=== PATIENT | female | born 1980 | race American Indian/Alaskan Native ===

== ENCOUNTER 2017-07-07 04:40 | Emergency (ER) | payer MEDICAID ==
--- NOTE | 2017-07-07 09:22 | Emergency Department Report ---
Minor Respiratory - HPI Chief Complaint: Sore Throat Stated Complaint: SORE THROAT Time Seen by Provider: 07/07/17 08:58 Duration: 4 Days Pain Location: Throat, Ear (left ear) Severity: severe Minor Respiratory: Yes Sore Throat, Yes Able to Tolerate Fluids (painful to drink and swallow. No drooling), Yes Ear Pain (left ear), Yes Sick Contacts ( child with strep), Yes Fever (chills), No Rhinorrhea, No Cough, No Hemoptysis, No Chest Pain, No Shortness of Breath Other History: Mom here report that the child's has sore throat and she has sore throats and she thinks she gave child whenever she has. She reports chills but did not take her temperature. Sore throat is 10 out of 10 and worse with swallowing feels sore. She says she is not able to eat anything solid because her throat hurts. Denies any drooling. Also complaining of left ear pain and pain to her neck. Pain is 10 out of 10. Worse with swallowing. Denies any coughing, abdominal pain. Denies any nausea or vomiting. Denies any chest pain or shortness of breath. Denies any swollen tongue.. Mom his heart hearing mostly to her right here and she has a hearing aid. Child is positive for strep ED Review of Systems ROS: Stated complaint: SORE THROAT Other details as noted in HPI Comment: All other systems reviewed and negative Constitutional: chills Eyes: denies: eye pain, eye discharge ENT: ear pain, throat pain. denies: dental pain, congestion Respiratory: no symptoms reported Cardiovascular: denies: chest pain, palpitations, edema, syncope, paroxysmal nocturnal dyspnea Gastrointestinal: denies: abdominal pain, nausea, vomiting, diarrhea, constipation, hematemesis, melena, hematochezia Genitourinary: denies: dysuria, hematuria Musculoskeletal: denies: back pain, joint swelling, arthralgia, myalgia Skin: denies: rash Neurological: denies: headache, abnormal gait, vertigo ED Past Medical Hx - Past Medical History Previous Medical History?: Yes Additional medical history: UTI/pyelonephritis. Hearing deficit - Surgical History Past Surgical History?: No - Family History Family history: no significant - Social History Smoking Status: Current Every Day Smoker Substance Use Type: None - Medications Home Medications: Home Medications Medication Instructions Recorded Confirmed Last Taken Type Septra 04/20/16 Unknown History Toradol 04/20/16 Unknown History Zofran Odt 04/20/16 Unknown History Acetaminophen with Codeine 10 ml PO Q12H PRN #100 ml 07/07/17 Unknown Rx [Acetaminophen-Codeine ORAL LIQ] Ibuprofen [Motrin] 600 mg PO Q8H PRN #15 tablet 07/07/17 Unknown Rx Penicillin V Potassium 500 mg PO Q8H 10 Days #30 tablet 07/07/17 Unknown Rx Minor Respiratory Exam - Exam General: Vital signs noted. No distress. Alert and acting appropriately. This is a 36-year-old female well-nourished well-developed, nontoxic in appearance. HEENT: Yes Pharyngeal Erythema (swelling), Yes Pharyngeal Exudates (minimal, malodorous breath), Yes Moist Mucous Membranes (no drooling and oral airways patent. Uvula midline), No Rhinorrhea, No Conjuctival Injection, No Frontal Tenderness, No Maxillary Tenderness Ear: Neither TM Bulge, Neither TM Erythema, Neither EAC Pain, Neither EAC Discharge Neck: Yes Adenopathy (anterior Lily called), Yes Supple (full range of motion) Lungs: Yes Good Air Exchange, No Wheezes, No Ronchi, No Stridor, No Cough, No Labored Respirations, No Retractions, No Use of Accessory Muscles, No Other Abnormal Lung Sounds Heart: Yes Regular (tachycardic at 110), No Murmur Abdomen: Yes Normal Bowel Sounds, No Tenderness, No Peritoneal Signs Skin: No Rash, No Edema Neurologic: Neurological: Alert and oriented 3. GCS is 15, speech is clear and fluid. Gait is normal. No facial droop Musculoskeletal: Unremarkable. Extremity:No Clubbing, cyanosis or edema. +2 pulses to all extremities and no neurovascular compromise ED Course Vital Signs 07/07/17 05:51 Temperature 98.8 F Pulse Rate 110 H Respiratory 17 Rate Blood Pressure 189/165 O2 Sat by Pulse 99 Oximetry Vital Signs 07/07/17 07/07/17 05:51 09:36 Temperature 98.8 F Pulse Rate 110 H 90 Respiratory 17 18 Rate Blood Pressure 189/165 114/71 O2 Sat by Pulse 99 100 Oximetry - Reevaluation(s) Reevaluation #1: 07/07/17 09:48 Patient given [place] 7.5 mg elixir and lidocaine by mouth applied to throat. She is able to tolerate oral liquids and emergency room ED Medical Decision Making - Lab Data Strep test negative and culture pendiing. Mom exposed to strep from child - Medical Decision Making ED course: Him here complaining of ear pain and sore throats with neck pain. Her child is positive for strep. Mom with erythema, exudative throat, enlarged cervical lymph nodes and reports of chills. Based on Centor criteria with absence of respiratory symptoms and also exposure to strep ,she'll be treated for strep throat. Patient given [place] 7.5 mg. Emergency room and topical lidocaine to throat. She is able to tolerate oral liquids. Her heart rate is stabilized. I discussed with her that although her strep test is negative, cultures are still pending and her child is positive for strep therefore I will treat her for strep throat. She was given prescription for Motrin, Tylenol 3 elixir and penicillin V and discharged from emergency room with her family member in stable condition. Critical care attestation.: If time is entered above; I have spent that time in minutes in the direct care of this critically ill patient, excluding procedure time. ED Disposition Clinical Impression: Exudative pharyngitis, Streptococcus exposure, Chills, Anterior cervical lymphadenopathy, Otalgia of left ear Disposition: DC-01 TO HOME OR SELFCARE Is pt being admited?: No Does the pt Need Aspirin: No Condition: Stable Instructions: Strep Throat (ED) Additional Instructions: Please increase her fluid intake and gargle warm salt water 3-4 times a day Take Tylenol 3 for moderate to severe pain but please do not drive or operate heavy machinery while taking this medication as it causes drowsiness ,take Motrin for pain that is not severe Take penicillin V for strep throat. Prescriptions: Acetaminophen with Codeine [Acetaminophen-Codeine ORAL LIQ] 10 ml PO Q12H PRN # 100 ml PRN Reason: sore throat Ibuprofen [Motrin] 600 mg PO Q8H PRN #15 tablet PRN Reason: Pain Penicillin V Potassium 500 mg PO Q8H 10 Days #30 tablet Referrals: PRIMARY CARE, [Primary Care Provider] - 2-3 Days [facility] [Outside] - 2-3 Days Forms: Work/School Release Form(ED), Accompanied Note
[2017-07-07] MEDS ORDERED: NORCO PO ONE (09:23)
[2017-07-07] MEDS ORDERED: LIDOCAINE VISCOUS 2% PO ONE (09:25)
[2017-07-07 09:44] VITALS: BP 114/71
== END 2017-07-07 10:25 | disposition home or self-care (01) ==
LOC: ED 04:40
DX: J02.9 Acute pharyngitis, unspecified (principal); R59.1 Generalized enlarged lymph nodes; H92.02 Otalgia, left ear; F17.200 Nicotine dependence, unspecified, uncomplicated
CPT/HCPCS: 87116; 87430

== ENCOUNTER 2017-07-09 16:16 | Emergency (ER) | payer MEDICAID ==
[2017-07-09 17:14] LABS: Hematocrit 38.6 % (30.3-42.9); Hemoglobin 13.3 gm/dl (10.1-14.3); Mean Corpuscular HGB Conc 35 % (30-34); Mean Corpuscular Hemoglobin 32 pg (28-32); Mean Corpuscular Volume 92 fl (79-97); Platelet Count 304 K/mm3 (140-440); Red Blood Count 4.19 M/mm3 (3.65-5.03)
[2017-07-09 17:35] LABS: BUN/Creatinine Ratio 8; Blood Urea Nitrogen 8 mg/dL (7-17); Calcium 9.5 mg/dL (8.4-10.2); Hemolysis Index 0
[2017-07-09 19:38] VITALS: BP 129/87
== END 2017-07-09 20:54 | disposition left against medical advice (07) ==
LOC: ED 16:16
DX: J02.9 Acute pharyngitis, unspecified (principal); Z53.21 Procedure and treatment not carried out due to patient leaving prior to being seen by health care provider
CPT/HCPCS: 36415; 80048; 85027; 86140

== ENCOUNTER 2018-06-29 08:13 | Emergency (ER) | payer MEDICAID ==
--- NOTE | 2018-06-29 09:12 | Emergency Department Report ---
ED GI Bleed HPI - General Chief complaint: GI Bleed Stated complaint: BLOOD IN STOOL Source: patient Mode of arrival: Ambulatory Limitations: No Limitations - History of Present Illness Initial comments: This is a 37-year-old -[place] female is here and is here reports blood in stool this morning. Patient reports during bowel movement she felt a large gush from rectum and when she looked until it was a large amount of bright red blood. She reports a history of hernia. Patient states she is also having pain to the umbilical region where her hernia is. She denies chest pain, shortness of breath, urinary frequency, urgency, dysuria, nausea or vomiting, or diarrhea. MD complaint: gross hematochezia -: This morning Location: periumbilical Radiation: none Severity scale (0 -10): 8 Quality: cramping Consistency: intermittent Improves with: none Worsens with: bowel movement Associated Symptoms: abdominal pain. denies: nausea, vomiting, epistaxis, fever/chills, headaches, loss of appetite, malaise, easy bruising, rash, other bleeding, shortness of breath, syncope, weakness - Related Data Home Medications Medication Instructions Recorded Confirmed Last Taken Septra 04/20/16 Unknown Toradol 04/20/16 Unknown Zofran Odt 04/20/16 Unknown Previous Rx's Medication Instructions Recorded Last Taken Type Acetaminophen with Codeine 10 ml PO Q12H PRN #100 ml 07/07/17 Unknown Rx [Acetaminophen-Codeine ORAL LIQ] Ibuprofen [Motrin] 600 mg PO Q8H PRN #15 tablet 07/07/17 Unknown Rx Penicillin V Potassium 500 mg PO Q8H 10 Days #30 tablet 07/07/17 Unknown Rx Allergies Allergy/AdvReac Type Severity Reaction Status Date / Time No Known Allergies Allergy Unverified 04/20/16 15:31 ED Review of Systems ROS: Stated complaint: BLOOD IN STOOL Other details as noted in HPI Constitutional: denies: chills, fever Respiratory: denies: cough, shortness of breath, wheezing Cardiovascular: denies: chest pain, palpitations Gastrointestinal: abdominal pain, hematochezia. denies: nausea, vomiting, diarrhea, constipation, hematemesis, melena Genitourinary: denies: urgency, dysuria, discharge Neurological: denies: headache, weakness, paresthesias Psychiatric: denies: anxiety, depression ED Past Medical Hx - Past Medical History Previous Medical History?: Yes Additional medical history: UTI/pyelonephritis. Hearing deficit - Surgical History Past Surgical History?: Yes Additional Surgical History: right nephrectomy - Social History Smoking Status: Current Every Day Smoker Substance Use Type: Alcohol - Medications Home Medications: Home Medications Medication Instructions Recorded Confirmed Last Taken Type Septra 04/20/16 Unknown History Toradol 04/20/16 Unknown History Zofran Odt 04/20/16 Unknown History Acetaminophen with Codeine 10 ml PO Q12H PRN #100 ml 07/07/17 Unknown Rx [Acetaminophen-Codeine ORAL LIQ] Ibuprofen [Motrin] 600 mg PO Q8H PRN #15 tablet 07/07/17 Unknown Rx Penicillin V Potassium 500 mg PO Q8H 10 Days #30 tablet 07/07/17 Unknown Rx ED Physical Exam - General Limitations: No Limitations General appearance: alert, in no apparent distress - Respiratory Respiratory exam: Present: normal lung sounds bilaterally. Absent: respiratory distress - Cardiovascular Cardiovascular Exam: Present: regular rate, normal rhythm. Absent: systolic murmur, diastolic murmur, rubs, gallop - GI/Abdominal GI/Abdominal exam: Present: soft, tenderness (left upper quadrant and right upper quadrant tenderness), guarding, normal bowel sounds, hernia (periumb ilical). Absent: distended, rebound, rigid, organomegaly, mass, bruit, pulsatile mass - Rectal Rectal exam: Present: normal rectal tone, heme (+) stool, bloody stool. Absent: decreased rectal tone, heme (-) stool, black stool, fecal impaction, hemorrhoids, mass, tenderness - Neurological Exam Neurological exam: Present: alert, oriented X3 - Psychiatric Psychiatric exam: Present: normal affect, normal mood - Skin Skin exam: Present: warm, dry, intact, normal color. Absent: rash ED Course Vital Signs 06/29/18 08:41 Temperature 98.2 F Pulse Rate 61 Respiratory 18 Rate Blood Pressure 132/87 O2 Sat by Pulse 100 Oximetry ED Medical Decision Making - Lab Data Result diagrams: 06/29/18 09:31 06/29/18 09:35 Lab Results 06/29/18 06/29/18 06/29/18 Range/Units 09:31 09:31 09:35 WBC 6.0 (4.5-11.0) K/mm3 RBC 3.65 (3.65-5.03) M/mm3 Hgb 12.0 (10.1-14.3) gm/dl Hct 35.1 (30.3-42.9) % MCV 96 (79-97) fl MCH 33 H (28-32) pg MCHC 34 (30-34) % RDW 15.4 H (13.2-15.2) % Plt Count 258 (140-440) K/mm3 Lymph % (Auto) 38.4 H (13.4-35.0) % Mckinley % (Auto) 5.5 (0.0-7.3) % Eos % (Auto) 0.6 (0.0-4.3) % Baso % (Auto) 0.5 (0.0-1.8) % Lymph # 2.3 (1.2-5.4) K/mm3 Mckinley # 0.3 (0.0-0.8) K/mm3 Eos # 0.0 (0.0-0.4) K/mm3 Baso # 0.0 (0.0-0.1) K/mm3 Seg Neutrophils % 55.0 (40.0-70.0) % Seg Neutrophils # 3.3 (1.8-7.7) K/mm3 PT 13.8 (12.2-14.9) Sec. INR 1.00 (0.87-1.13) APTT 24.2 (24.2-36.6) Sec. Sodium (137-145) mmol/L Potassium (3.6-5.0) mmol/L Chloride (98-107) mmol/L Carbon Dioxide (22-30) mmol/L Anion Gap mmol/L BUN (7-17) mg/dL Creatinine (0.7-1.2) mg/dL Estimated GFR ml/min BUN/Creatinine Ratio % Glucose (65-100) mg/dL Calcium (8.4-10.2) mg/dL Total Bilirubin (0.1-1.2) mg/dL AST (5-40) units/L ALT (7-56) units/L Alkaline Phosphatase (35-129) units/L Total Protein (6.3-8.2) g/dL Albumin (3.9-5) g/dL Albumin/Globulin Ratio % Urine Color (Yellow) Urine Turbidity (Clear) Urine pH (5.0-7.0) Ur Specific [place] (1.003-1.030) Urine Protein (Negative) mg/dL Urine Glucose (UA) (Negative) mg/dL Urine Ketones (Negative) mg/dL Urine Blood (Negative) Urine Nitrite (Negative) Urine Bilirubin (Negative) Urine Urobilinogen (<2.0) mg/dL Ur Leukocyte Esterase (Negative) Urine WBC (Auto) (0.0-6.0) /HPF Urine RBC (Auto) (0.0-6.0) /HPF U Epithel Cells (Auto) (0-13.0) /HPF Urine Bacteria (Auto) (Negative) /HPF Urine Yeast (Budding) /HPF Urine HCG, Qual (Negative) Blood Type A POSITIVE Antibody Screen Negative 06/29/18 06/29/18 Range/Units 09:35 Unknown WBC (4.5-11.0) K/mm3 RBC (3.65-5.03) M/mm3 Hgb (10.1-14.3) gm/dl Hct (30.3-42.9) % MCV (79-97) fl MCH (28-32) pg MCHC (30-34) % RDW (13.2-15.2) % Plt Count (140-440) K/mm3 Lymph % (Auto) (13.4-35.0) % Mckinley % (Auto) (0.0-7.3) % Eos % (Auto) (0.0-4.3) % Baso % (Auto) (0.0-1.8) % Lymph # (1.2-5.4) K/mm3 Mckinley # (0.0-0.8) K/mm3 Eos # (0.0-0.4) K/mm3 Baso # (0.0-0.1) K/mm3 Seg Neutrophils % (40.0-70.0) % Seg Neutrophils # (1.8-7.7) K/mm3 PT (12.2-14.9) Sec. INR (0.87-1.13) APTT (24.2-36.6) Sec. Sodium 137 (137-145) mmol/L Potassium 4.9 (3.6-5.0) mmol/L Chloride 101.7 (98-107) mmol/L Carbon Dioxide 25 (22-30) mmol/L Anion Gap 15 mmol/L BUN 7 (7-17) mg/dL Creatinine 0.9 (0.7-1.2) mg/dL Estimated GFR > 60 ml/min BUN/Creatinine Ratio 8 % Glucose 90 (65-100) mg/dL Calcium 8.8 (8.4-10.2) mg/dL Total Bilirubin 0.30 (0.1-1.2) mg/dL AST 19 (5-40) units/L ALT 7 (7-56) units/L Alkaline Phosphatase 84 (35-129) units/L Total Protein 6.9 (6.3-8.2) g/dL Albumin 3.6 L (3.9-5) g/dL Albumin/Globulin Ratio 1.1 % Urine Color Yellow (Yellow) Urine Turbidity Clear (Clear) Urine pH 6.0 (5.0-7.0) Ur Specific [place] 1.004 (1.003-1.030) Urine Protein <15 mg/dl (Negative) mg/dL Urine Glucose (UA) Neg (Negative) mg/dL Urine Ketones Neg (Negative) mg/dL Urine Blood Mod (Negative) Urine Nitrite Neg (Negative) Urine Bilirubin Neg (Negative) Urine Urobilinogen < 2.0 (<2.0) mg/dL Ur Leukocyte Esterase Lg (Negative) Urine WBC (Auto) 12.0 H (0.0-6.0) /HPF Urine RBC (Auto) 8.0 (0.0-6.0) /HPF U Epithel Cells (Auto) 1.0 (0-13.0) /HPF Urine Bacteria (Auto) 1+ (Negative) /HPF Urine Yeast (Budding) 1+ /HPF Urine HCG, Qual Negative (Negative) Blood Type Antibody Screen - Radiology Data Radiology results: report reviewed CT ABDOMEN PELVIS WITH CONTRAST: HISTORY: Left upper quadrant and right upper quadrant tenderness. COMPARISON: none. TECHNIQUE: Helical CT in 1.25mm intervals following IV contrast. Sagittal and coronal reconstructions. FINDINGS: Lung bases: Minor atelectatic changes are noted in the lower lobes. Liver: Normal. Biliary system: Normal. Pancreas: Normal. Spleen: Normal. Kidneys/ureters/bladder: The left kidney is severely atrophic, absent or has been surgically removed. The right kidney and collecting system and bladder are unremarkable. Small cysts at the superior pole of the right kidney are noted. Adrenal glands: Normal. Aorta: Normal. Intestines: Unremarkable given no oral contrast was administered. Appendix: Normal. Pelvic viscera: Normal. Ascites: Small pelvic ascites. Adenopathy: None. Musculoskeletal: The bony structures are intact. Small umbilical hernia containing fat is identified. There is a small ventral wall defect just superior to the umbilicus containing fat. IMPRESSION: No acute inflammatory process is identified The left kidney is not confidently identified. Severe atrophy versus agenesis versus surgical removal. Small pelvic ascites. Umbilical hernias as described. - Medical Decision Making This is a 37 y.o. female that presents with hematochezia since this morning. Patient is stable and was examined by me. Vitals stable. Obtained guaiac stool, CMP, CBC, UA, CT of abdomen and pelvis. Guaiac positive. All other labs unremarkable. IV site obtained and given normal saline [address] dictated radiologist report reviewed by myself. No acute inflammatory process is id entified The left kidney is not confidently identified. Severe atrophy versus agenesis versus surgical removal. Small pelvic ascites. Umbilical hernias as described. Consulted with the attending Dr. Win and [facility] Dr. Diaz. He states patient can follow-up outpatient in their office. Patient has scheduled EGD for July 10, 2018. She will need to consult them to add a colonoscopy. Discussed plan with patient and agreed to plan. No further questions noted by the patient. Discharged home in stable condition. Follow up with PCP in 2-3 days. Critical care attestation.: If time is entered above; I have spent that time in minutes in the direct care o f this critically ill patient, excluding procedure time. ED Disposition Clinical Impression: Stool guaiac positive Abdominal pain Qualifiers: Abdominal location: right upper quadrant Qualified Code(s): R10.11 - Right upper quadrant pain Disposition: DC-01 TO HOME OR SELFCARE Is pt being admited?: No Does the pt Need Aspirin: No Condition: Stable Instructions: Abdominal Pain (ED) Additional Instructions: Call [facility] to schedule a colonoscopy. Keep scheduled EGD appointment on 07/10/2018 with the [facility]. Tongue to the emergency room if increased bleeding, increased abdominal pain, chest pain, shortness of breath, or dizziness. Referrals: KEYA CARDOSO MD [Primary Care Provider] - 3-5 Days [facility] [Provider Group] - 3-5 Days [facility] [Provider Group] - 3-5 Days Forms: Accompanied Note Time of Disposition: 14:17
[2018-06-29] MEDS ORDERED: NACL 0.9% 1000 ML 1,000 ML IV ONE (09:33)
[2018-06-29 09:47] LABS: Basophils % (Auto) 0.5 % (0.0-1.8); Eosinophils % (Auto) 0.6 % (0.0-4.3); Hematocrit 35.1 % (30.3-42.9); Lymphocytes # (Auto) 2.3 K/mm3 (1.2-5.4); Lymphocytes % (Auto) 38.4 % (13.4-35.0); Mean Corpuscular HGB Conc 34 % (30-34); Mean Corpuscular Volume 96 fl (79-97); Monocytes # (Auto) 0.3 K/mm3 (0.0-0.8); Monocytes % (Auto) 5.5 % (0.0-7.3); Platelet Count 258 K/mm3 (140-440); Red Blood Count 3.65 M/mm3 (3.65-5.03); Red Cell Distribution Width 15.4 % (13.2-15.2)
[2018-06-29 10:05] LABS: Partial Thromboplastin Time 24.2 Sec. (24.2-36.6)
[2018-06-29 10:10] LABS: Albumin 3.6 g/dL (3.9-5); BUN/Creatinine Ratio 8; Blood Urea Nitrogen 7 mg/dL (7-17); Calcium 8.8 mg/dL (8.4-10.2); Hemolysis Index 115
[2018-06-29 10:17] LABS: Alanine Aminotransferase 7 units/L (7-56)
[2018-06-29 10:59] LABS: Bacteria,Urine 1+ /HPF (Negative); Bilirubin,Urine NEG (Negative); Blood,Urine MOD (Negative); Color,Urine Yellow (Yellow); Protein,Urine <15 mg/dL mg/dL (Negative); Urobilinogen,Urine < 2.0 mg/dL (<2.0)
[2018-06-29 11:04] LABS: HCG Qualitative,Urine Negative (Negative)
--- NOTE | 2018-06-29 12:34 | Cat Scan Report ---
CT ABDOMEN PELVIS WITH CONTRAST: HISTORY: Left upper quadrant and right upper quadrant tenderness. COMPARISON: none. TECHNIQUE: Helical CT in 1.25mm intervals following IV contrast. Sagittal and coronal reconstructions. FINDINGS: Lung bases: Minor atelectatic changes are noted in the lower lobes. Liver: Normal. Biliary system: Normal. Pancreas: Normal. Spleen: Normal. Kidneys/ureters/bladder: The left kidney is severely atrophic, absent or has been surgically removed. The right kidney and collecting system and bladder are unremarkable. Small cysts at the superior pole of the right kidney are noted. Adrenal glands: Normal. Aorta: Normal. Intestines: Unremarkable given no oral contrast was administered. Appendix: Normal. Pelvic viscera: Normal. Ascites: Small pelvic ascites. Adenopathy: None. Musculoskeletal: The bony structures are intact. Small umbilical hernia containing fat is identified. There is a small ventral wall defect just superior to the umbilicus containing fat. IMPRESSION: No acute inflammatory process is identified The left kidney is not confidently identified. Severe atrophy versus agenesis versus surgical removal. Small pelvic ascites. Umbilical hernias as described.
[2018-06-29 14:37] VITALS: BP 128/83
== END 2018-06-29 14:37 | disposition home or self-care (01) ==
LOC: ED 08:13
DX: R19.5 Other fecal abnormalities (principal); R10.11 Right upper quadrant pain; R10.12 Left upper quadrant pain; F17.200 Nicotine dependence, unspecified, uncomplicated
CPT/HCPCS: 36415; 74177; 80053; 81001; 81025; 82271; 85025; 85610; 85730; 86850; 86900; 86901; 99284; J7030; Q9967

== ENCOUNTER 2018-08-02 09:25 | Outpatient (CLI) | payer MEDICAID ==
--- NOTE | 2018-08-02 13:53 | Nuclear Medicine Report ---
NUCLEAR MEDICINE GASTRIC EMPTYING SCAN HISTORY: Nausea and vomiting. FINDINGS: Anterior abdominal images were obtained for 90 minutes after ingestion of 1 mCi of technetium 99m sulfur colloid in oatmeal. Half life for gastric emptying measures 46 minutes. No scintigraphic evidence for reflux disease. IMPRESSION: Normal gastric emptying.
== END 2018-08-02 09:50 | disposition home or self-care (01) ==
LOC: NM 09:25
PROVIDERS: ATTEND Student in an Organized Health Care Education/Training Program
DX: R10.13 Epigastric pain (principal); R63.4 Abnormal weight loss; R11.2 Nausea with vomiting, unspecified; R68.81 Early satiety; F17.200 Nicotine dependence, unspecified, uncomplicated
CPT/HCPCS: 78264; A9541

== ENCOUNTER 2018-10-13 17:48 | Emergency (ER) | payer MEDICAID ==
--- NOTE | 2018-10-13 18:00 | Emergency Department Report ---
Blank Doc - Documentation Documentation: 38 Y/O C/O OF NAUSEA, DIZZINESS, SEVERE NECK PAIN AND SORE THROAT. HAD TONSILS REMOVED EARLIER THIS YEAR FOR SIMILAR. NO VOMITING OR BLEEDING. PLAN CBC, BMP, STREP, PAIN CONTROL
[2018-10-13] MEDS ORDERED: NORCO 5/325 PO STA (18:01)
[2018-10-13 18:06] VITALS: BP 141/88
[2018-10-13 18:52] LABS: Basophils % (Auto) 0.4 % (0.0-1.8); Eosinophils % (Auto) 0.6 % (0.0-4.3); Hematocrit 36.2 % (30.3-42.9); Hemoglobin 12.6 gm/dl (10.1-14.3); Lymphocytes # (Auto) 2.5 K/mm3 (1.2-5.4); Mean Corpuscular HGB Conc 35 % (30-34); Mean Corpuscular Volume 96 fl (79-97); Monocytes # (Auto) 0.3 K/mm3 (0.0-0.8); Monocytes % (Auto) 4.3 % (0.0-7.3); Platelet Count 262 K/mm3 (140-440); Red Blood Count 3.77 M/mm3 (3.65-5.03)
[2018-10-13 19:09] LABS: BUN/Creatinine Ratio 9; Blood Urea Nitrogen 9 mg/dL (7-17); Calcium 9.3 mg/dL (8.4-10.2); Hemolysis Index 16
== END 2018-10-13 20:29 | disposition left against medical advice (07) ==
LOC: ED 17:48
DX: R11.0 Nausea (principal); R42 Dizziness and giddiness; M54.2 Cervicalgia; J02.9 Acute pharyngitis, unspecified
CPT/HCPCS: 80048; 85025; 99283

== ENCOUNTER 2020-06-14 11:14 | Emergency (ER) | payer MEDICAID ==
[2020-06-14] MEDS ORDERED: SODIUM CHLORIDE 0.9% 1000 ML 1,000 ML IV ONE ×3 (12:06→19:14)
[2020-06-14] MEDS ORDERED: ONDANSETRON 4 MG/2 ML INJ IV ONE (12:06)
[2020-06-14] MEDS ORDERED: fentaNYL 100 MCG/2 ML INJ IV ONE ×2 (12:06→15:22)
[2020-06-14] MEDS ORDERED: ACETAMINOPHEN 500 MG TAB PO ONE ×2 (12:09→19:14)
--- NOTE | 2020-06-14 12:13 | Emergency Department Report ---
HPI - HPI HPI: Room 44 The patient is a 39-year-old female present with a chief complaint of abdominal pain. Patient states for the past 3 days she has had constant pain in her epigastric region as well as right flank and low back. Patient describes the pain as a constant sharp stabbing pain. Patient missed occasional nausea but denies vomiting. The patient states she has not eaten in the past 2 days because food increases the pain. Patient states she developed a fever 101.9 F this morning. The patient states she noticed some blood in her stool on Monday but denies dysuria or hematuria. Patient currently gives her abdominal pain a score of 10/10 <GAIL BATISTA - Last Filed: 06/14/20 19:34> <PAULIE KAPADIA - Last Filed: 06/14/20 22:15> - General Chief Complaint: Abdominal Pain Time Seen by Provider: 06/14/20 11:54 ED Past Medical Hx - Past Medical History Additional medical history: UTI/pyelonephritis/ HERNIA. Hearing deficit. Born with 1 kidney - Surgical History Additional Surgical History: Breast reduction, , oral surgery - Family History Family history: no significant - Social History Smoking Status: Current Every Day Smoker (1/3 pack/day) Substance Use Type: None (Denies illicit drug use), Alcohol (Occasional) <GAIL BATISTA - Last Filed: 06/14/20 19:34> <PAULIE KAPADIA - Last Filed: 06/14/20 22:15> - Medications Home Medications: Home Medications Medication Instructions Recorded Confirmed Last Taken Type Septra 04/20/16 Unknown History Toradol 04/20/16 Unknown History Zofran Odt 04/20/16 Unknown History Acetaminophen with Codeine 10 ml PO Q12H PRN #100 ml 07/07/17 Unknown Rx [Acetaminophen-Codeine ORAL LIQ] Ibuprofen [Motrin] 600 mg PO Q8H PRN #15 tablet 07/07/17 Unknown Rx Penicillin V Potassium 500 mg PO Q8H 10 Days #30 tablet 07/07/17 Unknown Rx HYDROcodone/APAP 5-325 [[place] 1 - 2 each PO Q6HR PRN #14 tablet 06/14/20 Unknown Rx 5/325] Ibuprofen [Motrin 800 MG tab] 800 mg PO Q8HR PRN #20 tablet 06/14/20 Unknown Rx Promethazine [Phenergan] 25 mg PO Q6HR PRN #20 tab 06/14/20 Unknown Rx levoFLOXacin [Levaquin] 750 mg PO QDAY #10 tablet 06/14/20 Unknown Rx ED Review of Systems ROS: Stated complaint: FEVER/ABD PAIN/BACK PAIN Other details as noted in HPI Constitutional: fever Eyes: denies: eye pain ENT: denies: throat pain Respiratory: no symptoms reported Cardiovascular: denies: chest pain Endocrine: no symptoms reported Gastrointestinal: abdominal pain, nausea. denies: vomiting Genitourinary: denies: dysuria, hematuria Musculoskeletal: back pain Neurological: denies: headache <GAIL BATISTA - Last Filed: 06/14/20 19:34> ROS: Stated complaint: FEVER/ABD PAIN/BACK PAIN Other details as noted in HPI <PAULIE KAPADIA - Last Filed: 06/14/20 22:15> Physical Exam - Physical Exam Vital Signs: Vital Signs 06/14/20 11:32 Temperature 100.6 F H Pulse Rate 125 H Respiratory 20 Rate Blood Pressure 110/77 O2 Sat by Pulse 96 Oximetry Physical Exam: GENERAL: The patient is well-developed well-nourished female lying on stretcher not appearing to be in acute distress. [] HEENT: Normocephalic. Atraumatic. Extraocular motions are intact. Patient has moist mucous membranes. NECK: Supple. Trachea midline CHEST/LUNGS: Clear to auscultation. There is no respiratory distress noted. HEART/CARDIOVASCULAR: Regular. There is no tachycardia. There is no gallop rub or murmur. ABDOMEN: Abdomen is soft, with greatest tenderness to palpation in the midepiga stric and right upper quadrant. There is mild left upper quadrant tenderness. The remainder of the abdomen is soft and nontender. There is no rebound or guarding. Patient has normal bowel sounds. There is no abdominal distention. SKIN: There is no rash. There is no edema. There is no diaphoresis. NEURO: The patient is awake, alert, and oriented. The patient is cooperative. The patient has normal speech MUSCULOSKELETAL: There is no evidence of acute injury. <GAIL BATISTA - Last Filed: 06/14/20 19:34> - Physical Exam Vital Signs: Vital Signs 06/14/20 06/14/20 06/14/20 11:32 13:37 15:36 Temperature 100.6 F H Pulse Rate 125 H 110 H 110 H Respiratory 20 20 20 Rate Blood Pressure 110/77 Blood Pressure 123/80 130/79 [Right] O2 Sat by Pulse 96 98 97 Oximetry 06/14/20 06/14/20 06/14/20 17:17 18:16 19:07 Temperature Pulse Rate 102 H 109 H 115 H Respiratory 18 17 17 Rate Blood Pressure Blood Pressure 116/76 122/82 128/82 [Right] O2 Sat by Pulse 98 97 99 Oximetry 06/14/20 06/14/20 06/14/20 19:15 21:45 21:56 Temperature 101.3 F H Pulse Rate 123 H 100 H 90 Respiratory 16 20 Rate Blood Pressure Blood Pressure 109/70 [Right] O2 Sat by Pulse 100 99 Oximetry <PAULIE KAPADIA - Last Filed: 06/14/20 22:15> ED Course Vital Signs 06/14/20 11:32 Temperature 100.6 F H Pulse Rate 125 H Respiratory 20 Rate Blood Pressure 110/77 O2 Sat by Pulse 96 Oximetry <GAIL BATISTA K - Last Filed: 06/14/20 19:34> Vital Signs 06/14/20 06/14/20 06/14/20 11:32 13:37 15:36 Temperature 100.6 F H Pulse Rate 125 H 110 H 110 H Respiratory 20 20 20 Rate Blood Pressure 110/77 Blood Pressure 123/80 130/79 [Right] O2 Sat by Pulse 96 98 97 Oximetry 06/14/20 06/14/20 06/14/20 17:17 18:16 19:07 Temperature Pulse Rate 102 H 109 H 115 H Respiratory 18 17 17 Rate Blood Pressure Blood Pressure 116/76 122/82 128/82 [Right] O2 Sat by Pulse 98 97 99 Oximetry 06/14/20 06/14/20 06/14/20 19:15 21:45 21:56 Temperature 101.3 F H Pulse Rate 123 H 100 H 90 Respiratory 16 20 Rate Blood Pressure Blood Pressure 109/70 [Right] O2 Sat by Pulse 100 99 Oximetry <PAULIE KAPADIA - Last Filed: 06/14/20 22:15> ED Medical Decision Making - Lab Data Result diagrams: 06/14/20 12:51 06/14/20 12:51 - Radiology Data Radiology results: report reviewed (CT abdomen pelvis), image reviewed (CT abdomen pelvis) [facility] [address] [place] [address] Cat Scan Report Signed Patient: CATHRYN RANDALL MR #: [id number] : 1980 Acct:[id number] Age/Sex: 39 / F ADM Date: 06/14/20 Loc: ED [address]: Ordering Physician: GAIL BATISTA MD Date of Service: 06/14/20 Procedure(s): CT abdomen pelvis w con Accession Number(s): [id number] cc: GAIL BATISTA MD CT ABDOMEN AND PELVIS WITH CONTRAST INDICATION / CLINICAL INFORMATION: Epigastric and right flank pain.. TECHNIQUE: Axial CT images were obtained through the abdomen and pelvis after 100 cc of Omnipaque [address] scans at this location are performed using CT dose reduction for ALARA by means of automated exposure control. COMPARISON: CT scan dated 06/29/2018 FINDINGS: LOWER CHEST: There is mild bibasilar atelectasis. LIVER: No significant abnormality. GALLBLADDER: No significant abnormality. BILE DUCTS: No significant abnormality. PANCREAS: No significant abnormality. SPLEEN: No significant abnormality. ADRENALS: No significant abnormality. RIGHT KIDNEY and URETER: There is compensatory hypertrophy of the right kidney. There is heterogeneous enhancement in the right kidney with some mild stranding in the fat around it. There is no hydronephrosis. The appearance is concerning for pyelonephritis. There is a small cyst in the upper pole the right kidney. LEFT KIDNEY and URETER: Absent or severely atrophic STOMACH and SMALL BOWEL: No significant abnormality. COLON: No significant abnormality. APPENDIX: No significant abnormality. PERITONEUM: No free fluid. No free air. No fluid collection. LYMPH NODES: No significant adenopathy. AORTA and ARTERIES: No significant abnormality. IVC and VEINS: No significant abnormality. URINARY BLADDER: No significant abnormality. REPRODUCTIVE ORGANS: No significant abnormality. ADDITIONAL FINDINGS: None. SKELETAL SYSTEM: No acute abnormality. IMPRESSION: 1. There is mild heterogeneity in the enhancement of the right kidney there is some mild stranding in the perinephric fat. Not specific this is concerning for pyelonephritis. Clinical and laboratory correlation is recommended. There is no hydronephrosis. The left kidney is either severely atrophic or absent. Signer Name: Valentin Buenrostro MD Signed: 06/14/2020 4:47 PM Workstation Name: [id number] Transcribed By: SS Dictated By: Valentin Buenrostro MD Electronically Authenticated By: Valentin Buenrostro MD Signed Date/Time: 06/14/201646 DD/ 42 TD/TT: - Differential Diagnosis Pyelonephritis, small bowel obstruction, cholelithiasis, pancreatitis, <GAIL BATISTA - Last Filed: 06/14/20 19:34> - Lab Data Result diagrams: 06/14/20 12:51 06/14/20 12:51 - Medical Decision Making Patient signed out to me by Dr. Batista to reassess for improvement in heart rate after third liter of normal saline and repeat dose of Tylenol for recurrent fever. Patient felt better heart rate less than 100 patient can be discharged home. Patient's heart rate did decrease to 90 and patient reports feeling much better. I gave patient strict instructions to return to the ER if she feels worse instead of better with outpatient treatment. She was instructed to return if she has vomiting with p.o. intolerance and continues to have fever, pain, and worsening weakness despite prescribed medications. Patient voices understanding and feels well enough to go home at this time <PAULIE KAPADIA - Last Filed: 06/14/20 22:15> Critical care attestation.: If time is entered above; I have spent that time in minutes in the direct care of this critically ill patient, excluding procedure time. <GAIL BATISTA - Last Filed: 06/14/20 19:34> Critical care attestation.: If time is entered above; I have spent that time in minutes in the direct care of this critically ill patient, excluding procedure time. <PAULIE KAPADIA - Last Filed: 06/14/20 22:15> ED Disposition <GAIL BATISTA - Last Filed: 06/14/20 19:34> Is pt being admited?: No Does the pt Need Aspirin: No Time of Disposition: 22:15 <PAULIE KAPADIA - Last Filed: 06/14/20 22:15> Clinical Impression: Acute abdominal pain, Pyelonephritis, Leukocytosis, Fever Disposition: DC- TO HOME OR SELFCARE Condition: Stable Instructions: Pyelonephritis, Adult, Abdominal Pain (ED) Additional Instructions: Return to the emergency department should you develop worsening symptoms, inability to tolerate food or liquids, high fever or any other concerns Prescriptions: levoFLOXacin [Levaquin] 750 mg PO QDAY #10 tablet Ibuprofen [Motrin 800 MG tab] 800 mg PO Q8HR PRN #20 tablet PRN Reason: Pain, Moderate (4-6) HYDROcodone/APAP 5-325 [[place] 5/325] 1 - 2 each PO Q6HR PRN #14 tablet PRN Reason: Pain Promethazine [Phenergan] 25 mg PO Q6HR PRN #20 tab PRN Reason: Nausea Referrals: PRIMARY CARE, [Primary Care Provider] - 3-5 Days SUNITHA LYNN MD [Staff Physician] - 3-5 Days (Dr. Lynn is a primary physician. Please follow-up with him if you do not already have a primary physician)
[2020-06-14 13:20] LABS: Basophils % (Auto) 0.2 % (0.0-1.8); Eosinophils % (Auto) 0.2 % (0.0-4.3); Hematocrit 36.7 % (30.3-42.9); Hemoglobin 12.4 gm/dl (10.1-14.3); Lymphocytes # (Auto) 0.9 K/mm3 (1.2-5.4); Lymphocytes % (Auto) 5.2 % (13.4-35.0); Mean Corpuscular HGB Conc 34 % (30-34); Mean Corpuscular Volume 99 fl (79-97); Monocytes % (Auto) 5.5 % (0.0-7.3); Platelet Count 230 K/mm3 (140-440); Red Blood Count 3.71 M/mm3 (3.65-5.03); Red Cell Distribution Width 14.9 % (13.2-15.2)
[2020-06-14 13:38] LABS: Alanine Aminotransferase 8 units/L (7-56); Albumin 3.4 g/dL (3.9-5); BUN/Creatinine Ratio 8; Blood Urea Nitrogen 7 mg/dL (7-17); Calcium 8.4 mg/dL (8.4-10.2); Hemolysis Index 15
[2020-06-14 15:38] LABS: Bilirubin,Urine NEG (Negative); Blood,Urine MOD (Negative); Color,Urine Yellow (Yellow); Mucus,Urine FEW /HPF
[2020-06-14 15:39] LABS: HCG Qualitative,Urine Negative (Negative); WBC,Urine > 182.0 /HPF (0.0-6.0)
--- NOTE | 2020-06-14 16:52 | Cat Scan Report ---
CT ABDOMEN AND PELVIS WITH CONTRAST INDICATION / CLINICAL INFORMATION: Epigastric and right flank pain.. TECHNIQUE: Axial CT images were obtained through the abdomen and pelvis after 100 cc of Omnipaque [address] scans at this location are performed using CT dose reduction for ALARA by means of automat ed exposure control. COMPARISON: CT scan dated 06/29/2018 FINDINGS: LOWER CHEST: There is mild bibasilar atelectasis. LIVER: No significant abnormality. GALLBLADDER: No significant abnormality. BILE DUCTS: No significant abnormality. PANCREAS: No significant abnormality. SPLEEN: No significant abnormality. ADRENALS: No significant abnormality. RIGHT KIDNEY and URETER: There is compensatory hypertrophy of the right kidney. There is heterogeneou s enhancement in the right kidney with some mild stranding in the fat around it. There is no hydronep hrosis. The appearance is concerning for pyelonephritis. There is a small cyst in the upper pole the right kidney. LEFT KIDNEY and URETER: Absent or severely atrophic STOMACH and SMALL BOWEL: No significant abnormality. COLON: No significant abnormality. APPENDIX: No significant abnormality. PERITONEUM: No free fluid. No free air. No fluid collection. LYMPH NODES: No significant adenopathy. AORTA and ARTERIES: No significant abnormality. IVC and VEINS: No significant abnormality. URINARY BLADDER: No significant abnormality. REPRODUCTIVE ORGANS: No significant abnormality. ADDITIONAL FINDINGS: None. SKELETAL SYSTEM: No acute abnormality. IMPRESSION: 1. There is mild heterogeneity in the enhancement of the right kidney there is some mild stranding in the perinephric fat. Not specific this is concerning for pyelonephritis. Clinical and laboratory cor relation is recommended. There is no hydronephrosis. The left kidney is either severely atrophic or a bsent. Signer Name: Valentin Buenrostro MD Signed: 06/14/2020 4:47 PM Workstation Name: [id number]
[2020-06-14] MEDS ORDERED: levoFLOXacin 750 MG TAB PO ONE (17:00)
[2020-06-14 21:46] VITALS: BP 109/70
== END 2020-06-14 23:01 | disposition home or self-care (01) ==
LOC: ED 11:14
DX: N12 Tubulo-interstitial nephritis, not specified as acute or chronic (principal); D72.829 Elevated white blood cell count, unspecified; R50.9 Fever, unspecified; R10.13 Epigastric pain; Z98.890 Other specified postprocedural states; F17.200 Nicotine dependence, unspecified, uncomplicated; Z79.1 Long term (current) use of non-steroidal anti-inflammatories (NSAID); Z79.2 Long term (current) use of antibiotics; Z79.899 Other long term (current) drug therapy
CPT/HCPCS: 36415; 74177; 80053; 81001; 81025; 83690; 85025; 87076; 87086; 87186; 96361; 96374; 96375; 96376; 99284; J2405; J3010; J7030; Q9967